=== PATIENT | female | born 1980 | race African-American/Black ===

== ENCOUNTER 2020-11-18 12:29 | Emergency (ER) | payer OTHER ==
[~2020-11-18] VITALS: Ht 165.1 cm; Wt 90.9 kg
[2020-11-18 12:35] VITALS: BP 157/104; Ht 165.1 cm; Wt 90.9 kg
== END 2020-11-18 13:45 | disposition home or self-care (01) ==
LOC: D.ER 12:29
DX: S02.5XXA Fracture of tooth (traumatic), initial encounter for closed fracture (principal); W19.XXXA Unspecified fall, initial encounter; Y93.9 Activity, unspecified; Y92.9 Unspecified place or not applicable

== ENCOUNTER 2020-11-25 13:39 | Emergency (ER) | payer OTHER ==
[~2020-11-25] VITALS: Ht 165.1 cm; Wt 86.4 kg
[2020-11-25 13:52] VITALS: BP 116/78; Ht 165.1 cm; Wt 86.4 kg
== END 2020-11-25 15:47 | disposition left against medical advice (07) ==
LOC: D.ER 13:39
DX: R51.9 Headache, unspecified (principal)